=== PATIENT | female | born 1940 | race Caucasian/White ===

== ENCOUNTER 2019-12-29 12:56 | Inpatient (IN) | payer MEDICARE, OTHER ==
[~2019-12-29] VITALS: Ht 152.4 cm; Wt 59.0 kg
--- NOTE | 2019-12-29 16:21 | NUR ---
Pt arrived in unit to 327 on a gurney, transferred to bed, awake, AOx4. On RA with no SOB or distress noted at this time. Paperworks in chart. Complained of 5/10 pain on the lower back. Zamorano catheter in place draining well. Oriented to unit, call light and belongings within reach. Bed locked in lowest position with siderails 2x up
[2019-12-29 17:34] VITALS: BP 149/88
[2019-12-29] MEDS ORDERED: SENN-18 PO (18:37)
[2019-12-29] MEDS ORDERED: DIAZ5TAB PO (18:37)
[2019-12-29] MEDS ORDERED: MELA5TAB PO (18:37)
[2019-12-29] MEDS ORDERED: FLEC100T3 PO (18:37)
[2019-12-29] MEDS ORDERED: MAGN400O6 PO (18:37)
[2019-12-29] MEDS ORDERED: POLY17PO4 PO (18:37)
[2019-12-29] MEDS ORDERED: GABA600T PO (18:37)
[2019-12-29] MEDS ORDERED: ONDA4TAB5 PO (18:37)
[2019-12-29] MEDS ORDERED: METO-295 PO (18:37)
[2019-12-29] MEDS ORDERED: ACET-2154 PO (18:37)
[2019-12-29] MEDS ORDERED: TRAZ-182 PO (18:37)
[2019-12-29] MEDS ORDERED: DOCU-141 PO (18:37)
[2019-12-29] MEDS ORDERED: BISA10SU61 RC (18:37)
[2019-12-29] MEDS ORDERED: CALC300T4 PO (18:37)
[2019-12-29] MEDS ORDERED: TRAM50TA PO (18:37)
[2019-12-29] MEDS ORDERED: CALC-555 PO (18:37)
[2019-12-29] MEDS ORDERED: PANT40TA2 PO (18:37)
[2019-12-29] MEDS ORDERED: ESCI10TA PO (18:37)
[2019-12-29] MEDS ORDERED: MAG-55 PO (18:37)
[2019-12-29] MEDS ORDERED: BETH25TA10 PO (18:37)
[2019-12-29] MEDS ORDERED: VERA40TA5 PO (18:37)
[2019-12-29] MEDS ORDERED: CYCL7.5T17 PO (18:37)
[2019-12-29] MEDS ORDERED: OXYC5CAP18 PO (18:37)
[2019-12-29] MEDS ORDERED: ENOX40DI SQ (18:37)
[2019-12-29] MEDS ORDERED: Z GUARD REMEDY PASTE 57 GM TUBE TOP PRN (19:30)
[2019-12-29 19:55] VITALS: BP 131/75
[2019-12-29] MEDS ORDERED: DIAZEPAM 5 MG TABLET PO PRN (20:00)
[2019-12-29] MEDS ORDERED: BISACODYL 10 MG SUPP.RECT RC PRN (20:00)
[2019-12-29] MEDS ORDERED: ONDANSETRON HCL 4 MG TABLET PO PRN (20:00)
[2019-12-29] MEDS ORDERED: MAGNESIUM HYDROXIDE 30 ML LIQUID UDC PO PRN (20:00)
[2019-12-29] MEDS ORDERED: METOCLOPRAMIDE HCL 10 MG TABLET PO PRN (20:00)
[2019-12-29] MEDS ORDERED: TRAMADOL HCL 50 MG TABLET PO PRN (20:00)
[2019-12-29] MEDS ORDERED: CALCIUM CARBONATE 500 MG TAB.CHEW PO PRN (20:15)
[2019-12-29] MEDS ORDERED: MELATONIN 3 MG TABLET PO PRN (20:15)
[2019-12-29] MEDS ORDERED: MAG HYDROX/AL HYDROX/SIMETH 30 ML LIQUID UDC PO PRN (20:15)
[2019-12-29] MEDS: DOCUSATE SODIUM 100 MG CAPSULE PO SCH (20:51)
[2019-12-29] MEDS: SENNOSIDES 1 TABLET PO SCH (20:51)
[2019-12-29] MEDS: GABAPENTIN 300 MG CAPSULE PO SCH (20:51)
[2019-12-29] MEDS: TRAZODONE 50 MG TABLET PO SCH (20:52)
[2019-12-29] MEDS: VERAPAMIL 40 MG TABLET PO SCH (20:54)
[2019-12-29] MEDS: FLECAINIDE ACETATE 100 MG TABLET PO SCH (20:54)
--- NOTE | 2019-12-30 03:50 | NUR ---
AAOx4 In stable condition. Admitted for rehab. S/P L4-L5 decompression and fusion with decompression on 12/24/19 in [facility].VSS. Lowerback incision CARYN with dermabund. No drainage noted. All due meds given. Tolerated well. No ill effects noted. Denies any pain nor any discomfort. Zamorano catheter intact draining yellow urine. Patient has hx of urinary retention. Hx also of Afib,HTN, Hyperlipidemia, and spinal stenosis. No acute distress noted. Will monitor patient. Needs attended. Fall precautions maintained. Siderails up for safety.
[2019-12-30 04:44] VITALS: BP 124/73
--- NOTE | 2019-12-30 06:34 | NUR ---
End of shift notes: Slept well all night. Repositioned. Denies any pain nor any discomfort. VSS. All needs attended and met. Zamorano draining a moderate amount of yellow urine. VSS.
[2019-12-30] MEDS: ESCITALOPRAM OXALATE 10 MG TABLET PO SCH (08:39)
[2019-12-30] MEDS: PANTOPRAZOLE SODIUM 40 MG TABLET.DR PO SCH (08:39)
[2019-12-30] MEDS: DOCUSATE SODIUM 100 MG CAPSULE PO SCH ×2 (08:39→21:04)
[2019-12-30] MEDS: CALCIUM CARB/VITAMIN D 500MG-200UNITS TABLET PO SCH (08:39)
[2019-12-30] MEDS: FLECAINIDE ACETATE 100 MG TABLET PO SCH ×2 (08:40→21:01)
[2019-12-30] MEDS: SENNOSIDES 1 TABLET PO SCH ×2 (08:40→21:00)
[2019-12-30] MEDS: VERAPAMIL 40 MG TABLET PO SCH ×3 (08:41→21:02)
[2019-12-30] MEDS: BETHANECHOL CHLORIDE 25 MG TABLET PO SCH ×3 (08:42→17:26)
[2019-12-30] MEDS: ENOXAPARIN SODIUM 40 MG/0.4 ML DISP.SYRIN SQ SCH (08:53)
[2019-12-30] MEDS: MIRALAX 17 GM POWD.PACK PO SCH (09:37)
--- NOTE | 2019-12-30 14:29 | NUR ---
Received patient awake in bed in stable condition. Patient participates well in therapy. no complaint of pain/discomfort noted. Patient seen and examined by MD Leija. Patient BP went low during prior to therapy. MD Jenkins aware. Patient no complaint of dizziness. Encourage increase fluid intake. Patient therapy done at bedside. will continue monitor
[2019-12-30 14:32] VITALS: BP_SYST 101; BP_SYST 80; BP_SYST 92; BP_DIAS 47; BP_DIAS 52; BP_DIAS 60
[2019-12-30 16:26] VITALS: BP 125/80
[2019-12-30 20:00] VITALS: BP 126/63
[2019-12-30] MEDS: GABAPENTIN 300 MG CAPSULE PO SCH (21:03)
[2019-12-30] MEDS: TRAZODONE 50 MG TABLET PO SCH (21:03)
--- NOTE | 2019-12-30 21:13 | NUR ---
Received pt resting in bed. AAO x4. No acute distress noted. Denies pain/ discomfort. Due meds given as ordered. Pt refused senokot as she already had 2x BM today, but ok to take colace. Safety measures maintained. Bed alarm on. Call light and personal items within reach. Will continue to monitor.
--- NOTE | 2019-12-30 21:26 | NUR ---
Pt's garcia catheter patent and intact, draining well with clear yellow colored urine.
[2019-12-30] MEDS: OXYCODONE HCL 5 MG TABLET PO PRN (22:18)
[2019-12-31 04:00] VITALS: BP 130/60
[2019-12-31 07:14] LABS: BASOPHILS % (AUTO) 0.3 % (0.0-2.0); EOSINOPHILS # (AUTO) 0.2 K/uL (0.0-0.7); EOSINOPHILS % (AUTO) 2.5 % (0.0-7.0); HEMATOCRIT 25.1 % (31.2-41.9); HEMOGLOBIN 8.6 g/dL (10.9-14.3); LYMPHOCYTES # (AUTO) 2.1 K/uL (20.0-40.0); LYMPHOCYTES % (AUTO) 26.8 % (20.5-51.5); MEAN CORPUSCULAR HEMOGLOBIN 29.1 uug (24.7-32.8); MEAN CORPUSCULAR HGB CONC 34 g/dL (32.3-35.6); MEAN CORPUSCULAR VOLUME 85.2 fL (75.5-95.3); MONOCYTES # (AUTO) 0.7 K/uL (2.0-10.0); MONOCYTES % (AUTO) 8.9 % (0.0-11.0); NEUTROPHILS # (AUTO) 4.7 K/uL (1.8-8.9); NEUTROPHILS % (AUTO) 61.5 % (38.5-71.5); PLATELET COUNT (AUTO) 182 K/uL (179-408); RED BLOOD CELL COUNT(AUTO) 2.94 MIL/uL (3.63-4.92); WHITE BLOOD COUNT (AUTO) 7.7 K/uL (3.8-11.8)
[2019-12-31 07:29] LABS: CREATININE 1.1 mg/dL (0.6-1.3); MAGNESIUM 1.8 mg/dL (1.8-2.4); PHOSPHOROUS 3.6 mg/dL (2.5-4.9); POTASSIUM 4.5 mmol/L (3.5-5.1)
[2019-12-31 07:30] VITALS: BP 121/71
[2019-12-31] MEDS: SENNOSIDES 1 TABLET PO SCH ×2 (08:21→21:09)
[2019-12-31] MEDS: BETHANECHOL CHLORIDE 25 MG TABLET PO SCH ×3 (08:25→16:29)
[2019-12-31] MEDS: CALCIUM CARB/VITAMIN D 500MG-200UNITS TABLET PO SCH (08:25)
[2019-12-31] MEDS: ESCITALOPRAM OXALATE 10 MG TABLET PO SCH (08:25)
[2019-12-31] MEDS: DOCUSATE SODIUM 100 MG CAPSULE PO SCH ×2 (08:25→21:08)
[2019-12-31] MEDS: VERAPAMIL 40 MG TABLET PO SCH ×3 (08:27→21:11)
[2019-12-31] MEDS: MIRALAX 17 GM POWD.PACK PO SCH (08:27)
[2019-12-31] MEDS: FLECAINIDE ACETATE 100 MG TABLET PO SCH ×2 (08:28→21:08)
[2019-12-31] MEDS: PANTOPRAZOLE SODIUM 40 MG TABLET.DR PO SCH (08:28)
[2019-12-31] MEDS: ENOXAPARIN SODIUM 40 MG/0.4 ML DISP.SYRIN SQ SCH (08:29)
[2019-12-31] MEDS: ACETAMINOPHEN 325 MG TABLET PO PRN ×2 (10:30→16:29)
[2019-12-31 15:06] VITALS: BP 140/76
[2019-12-31 20:00] VITALS: BP 141/72
[2019-12-31] MEDS: GABAPENTIN 300 MG CAPSULE PO SCH (21:10)
[2019-12-31] MEDS: TRAZODONE 50 MG TABLET PO SCH (21:10)
--- NOTE | 2019-12-31 21:15 | NUR ---
Received patient in bed, AAO x4. No acute distress or SOB was noted. On room air. Able to make needs known. Complained of tolerated pain on her back. All due medications administered and well tolerated. Safety measures maintained. Fall prevention maintained. All needs attended promptly. Bed in locked and low position, Side rails up x2 for safety. Call light and frequently using items within reach. Continue to monitor and will endorse to the oncoming nurse.
--- NOTE | 2019-12-31 22:02 | NUR ---
Upon skin assessment, an area of skin abrasion between buttocks was noted. Picture taken and put in the chart. Wound care consult requested. Applied Zguard and Mepilex on the affected area. Continue to monitor.
[2020-01-01] MEDS: OXYCODONE HCL 5 MG TABLET PO PRN ×2 (02:17→22:23)
[2020-01-01 04:00] VITALS: BP 100/54
[2020-01-01] MEDS: PANTOPRAZOLE SODIUM 40 MG TABLET.DR PO SCH (06:18)
[2020-01-01 07:11] LABS: BASOPHILS % (AUTO) 0.3 % (0.0-2.0); EOSINOPHILS # (AUTO) 0.2 K/uL (0.0-0.7); EOSINOPHILS % (AUTO) 2.3 % (0.0-7.0); HEMATOCRIT 26.3 % (31.2-41.9); HEMOGLOBIN 8.9 g/dL (10.9-14.3); LYMPHOCYTES # (AUTO) 1.7 K/uL (20.0-40.0); LYMPHOCYTES % (AUTO) 20.4 % (20.5-51.5); MEAN CORPUSCULAR HEMOGLOBIN 29.1 uug (24.7-32.8); MEAN CORPUSCULAR HGB CONC 34 g/dL (32.3-35.6); MEAN CORPUSCULAR VOLUME 86.1 fL (75.5-95.3); MONOCYTES # (AUTO) 0.7 K/uL (2.0-10.0); NEUTROPHILS # (AUTO) 5.7 K/uL (1.8-8.9); PLATELET COUNT (AUTO) 195 K/uL (179-408); RED BLOOD CELL COUNT(AUTO) 3.05 MIL/uL (3.63-4.92); WHITE BLOOD COUNT (AUTO) 8.3 K/uL (3.8-11.8)
[2020-01-01 07:30] VITALS: BP 114/60
[2020-01-01 07:32] LABS: IRON, SERUM 34 ug/dL (50-175)
[2020-01-01 07:55] LABS: FERRITIN 34 ng/mL (8-252)
[2020-01-01] MEDS: SENNOSIDES 1 TABLET PO SCH ×2 (08:42→20:57)
[2020-01-01] MEDS: MIRALAX 17 GM POWD.PACK PO SCH ×2 (08:42→14:43)
[2020-01-01] MEDS: CALCIUM CARB/VITAMIN D 500MG-200UNITS TABLET PO SCH (08:43)
[2020-01-01] MEDS: BETHANECHOL CHLORIDE 25 MG TABLET PO SCH ×3 (08:43→17:30)
[2020-01-01] MEDS: FLECAINIDE ACETATE 100 MG TABLET PO SCH ×2 (08:43→20:57)
[2020-01-01] MEDS: ESCITALOPRAM OXALATE 10 MG TABLET PO SCH (08:45)
[2020-01-01] MEDS: DOCUSATE SODIUM 100 MG CAPSULE PO SCH ×3 (08:47→20:56)
[2020-01-01] MEDS: ENOXAPARIN SODIUM 40 MG/0.4 ML DISP.SYRIN SQ SCH (08:49)
[2020-01-01] MEDS: ACETAMINOPHEN 325 MG TABLET PO PRN ×2 (08:52→16:14)
--- NOTE | 2020-01-01 11:36 | NUR ---
WOUND CARE CONSULT: PT IS OFF UNIT AT THIS TIME. REVIEWED CHART, NURSING DOCUMENTATION AND SPOKE WITH NURSING STAFF. PHOTO INDICATES REDNESS, RASH WITH SOME IRREGULAR SKIN TO PERIANAL AND GLUTEAL CREASE AREA. RECOMMENDATIONS MADE FOR SKIN CARE AND PROTECTION. DISCUSSED WITH NURSING STAFF. WILL SEE PRN. ROSALES IN AGREEMENT WITH PLAN OF CARE.
[2020-01-01 15:51] VITALS: BP 148/70
--- NOTE | 2020-01-01 16:11 | NUR ---
INDIVIDUALIZED PLAN OF CARE
--- NOTE | 2020-01-01 16:12 | NUR ---
INTERDISCIPLINARY TEAM CONFERENCE
[2020-01-01] MEDS: SOD FERRIC GLUC COMPLX/SUCROSE 125 MG in IV NORMAL SALINE 100 ML IV SCH (16:13)
[2020-01-01] MEDS: VERAPAMIL 40 MG TABLET PO SCH ×3 (16:14→20:56)
[2020-01-01] MEDS: CLOTRIMAZOLE 1% CREAM 30 GM TUBE TOP SCH (17:30)
[2020-01-01 18:30] LABS: *BILIRUBIN,URIN NEGATIVE (NEGATIVE); *BLOOD, URINE NEGATIVE (NEGATIVE); *CLARITY,URINE CLEAR (CLEAR); *COLOR,URINE YELLOW (YELLOW); *KETONES,URINE NEGATIVE (NEGATIVE); *UROBILINOGEN,URINE 0.2 E.U./dl (NORMAL); LEUKOCYTE ESTERASE ,URINE NEGATIVE (NEGATIVE); NITRITE, URINE NEGATIVE (NEGATIVE); UGLUCOSE NEGATIVE (NEGATIVE)
[2020-01-01] MEDS: GABAPENTIN 300 MG CAPSULE PO SCH (20:57)
[2020-01-01] MEDS: TRAZODONE 50 MG TABLET PO SCH (20:57)
[2020-01-01 21:14] VITALS: BP 129/78
--- NOTE | 2020-01-02 02:25 | NUR ---
awake and alert and oriented x4 VSS no acute distress noted. OOB to bedside commode. BM noted this shift. Stool for occult blood sent. Garcia d/tao @ 1800 (12/31). Will monitor for voiding. Patient hasn't \voided yet, pass 8 hrs already. Bladder scan @ 0200, noted 625 cc noted in the bladder. CALL CENTER TRAINER Landis aware of patient's garcia catheter out, if no void in 8hrs insert garcia. #16FR garcia catheter inserted, obtained almost 700 ml out of yellow urine. Patient says felt much better. Needs attended.
[2020-01-02 05:30] VITALS: BP 106/51
[2020-01-02] MEDS: PANTOPRAZOLE SODIUM 40 MG TABLET.DR PO SCH (06:05)
--- NOTE | 2020-01-02 06:51 | NUR ---
End of shift notes: Slept well most shift. Zamorano catheter draining yellow urine. denies any pain nor any discomfort. VSS. Kept comfortable.
[2020-01-02 07:30] VITALS: BP 106/64
--- NOTE | 2020-01-02 07:30 | NUR ---
Received patient in bed alert with no respiratory distress noted. No sign of distress at this time.Head of the bed is elevated. Zamorano catheter fr 18. draining with clear yellow output. Left forearm 22 g patent and intact. . Changed and repositioned patient for comfort. Safety and measures provided. Will continue to monitor.
[2020-01-02] MEDS: DOCUSATE SODIUM 100 MG CAPSULE PO SCH ×3 (09:00→21:37)
[2020-01-02] MEDS: VERAPAMIL 40 MG TABLET PO SCH ×4 (09:00→21:40)
[2020-01-02] MEDS: ESCITALOPRAM OXALATE 10 MG TABLET PO SCH ×2 (09:00→10:28)
--- NOTE | 2020-01-02 09:30 | NUR ---
Patient is off the floor for physical therapy. Will give morning medications when back on the floor. Addendum: 01/02/20 at 1323 by FRANCO KILGORE RN Patient off the floor for occupational therapy
[2020-01-02] MEDS: MIRALAX 17 GM POWD.PACK PO SCH (10:26)
[2020-01-02] MEDS: ENOXAPARIN SODIUM 40 MG/0.4 ML DISP.SYRIN SQ SCH (10:26)
[2020-01-02] MEDS: FLECAINIDE ACETATE 100 MG TABLET PO SCH ×2 (10:27→21:37)
[2020-01-02] MEDS: CALCIUM CARB/VITAMIN D 500MG-200UNITS TABLET PO SCH (10:28)
[2020-01-02] MEDS: ACETAMINOPHEN 325 MG TABLET PO PRN ×2 (10:28→17:21)
[2020-01-02] MEDS: SENNOSIDES 1 TABLET PO SCH ×2 (10:28→21:00)
[2020-01-02] MEDS: BETHANECHOL CHLORIDE 25 MG TABLET PO SCH ×3 (10:28→17:21)
[2020-01-02] MEDS: CLOTRIMAZOLE 1% CREAM 30 GM TUBE TOP SCH ×2 (10:29→17:25)
--- NOTE | 2020-01-02 13:00 | NUR ---
Patient is off the floor for physical therapy. Will give morning medications when back on the floor.
[2020-01-02 13:47] LABS: *OCCULT BLOOD STOOL NEGATIVE (NEGATIVE)
[2020-01-02] MEDS: SOD FERRIC GLUC COMPLX/SUCROSE 125 MG in IV NORMAL SALINE 100 ML IV SCH (13:56)
[2020-01-02] MEDS: HYDROCORTISONE 2.5 % RECTAL CREAM 28.35 GM TUBE RC PRN (13:57)
--- NOTE | 2020-01-02 14:15 | NUR ---
Patient refused blood pressure medication because she says her blood pressure is too low. She doesn't want it going any lower. Will continue to monitor
[2020-01-02 16:00] VITALS: BP 107/61
--- NOTE | 2020-01-02 18:45 | NUR ---
Patient has elevated blood pressure. Will give earlier blood pressure medication that was held due to low BP. BP is 162/86 with a heart rate of 71. Will continue to monitor
--- NOTE | 2020-01-02 19:10 | NUR ---
patient in bed alert with no respiratory distress noted. No sign of distress at this time.Head of the bed is elevated. Zamorano catheter fr 18. draining with clear yellow output. Left forearm 22 g patent and intact. All medications given as ordered. Changed and repositioned patient for comfort. Safety and measures provided. Will endorse to oncoming nurse.
[2020-01-02 20:32] VITALS: BP 138/69
[2020-01-02] MEDS: GABAPENTIN 300 MG CAPSULE PO SCH (21:38)
[2020-01-02] MEDS: TRAZODONE 50 MG TABLET PO SCH (21:39)
[2020-01-02] MEDS: OXYCODONE HCL 5 MG TABLET PO PRN (21:45)
--- NOTE | 2020-01-02 21:59 | NUR ---
Received pt resting in bed and watching tv. AAO x4. No acute distress noted. C/o /10 pain on the back, PRN pain med given. Other due meds given as ordered. Pt refused senokot. Risks and benefits explained, still refused. Zamorano catheter, draining well with clear yellow colored urine. Skin care rendered. Safety measures maintained. Call light and personal items within reach. Will continue to monitor.
[2020-01-03 04:46] VITALS: BP 107/62
[2020-01-03] MEDS: PANTOPRAZOLE SODIUM 40 MG TABLET.DR PO SCH (06:14)
--- NOTE | 2020-01-03 07:30 | NUR ---
Received patient in bed alert and oriented with with no respiratory distress noted. No sign of distress at this time. Head of the bed is elevated. Zamorano catheter fr 18. draining with clear yellow output. right wrist with 22 g patent and intact. Patient reports pain and is asking for pain management prior to rehab. Will administer medications as ordered. Changed and repositioned patient for comfort. Safety measures provided. Will continue to monitor.
[2020-01-03] MEDS: MIRALAX 17 GM POWD.PACK PO SCH (08:33)
[2020-01-03] MEDS: SENNOSIDES 1 TABLET PO SCH ×2 (08:33→21:00)
[2020-01-03] MEDS: ACETAMINOPHEN 325 MG TABLET PO PRN ×2 (08:36→14:27)
[2020-01-03] MEDS: CALCIUM CARB/VITAMIN D 500MG-200UNITS TABLET PO SCH (08:36)
[2020-01-03] MEDS: FLECAINIDE ACETATE 100 MG TABLET PO SCH ×2 (08:37→21:09)
[2020-01-03] MEDS: ENOXAPARIN SODIUM 40 MG/0.4 ML DISP.SYRIN SQ SCH (08:39)
[2020-01-03] MEDS: ESCITALOPRAM OXALATE 10 MG TABLET PO SCH (08:46)
[2020-01-03] MEDS: CLOTRIMAZOLE 1% CREAM 30 GM TUBE TOP SCH ×2 (08:46→17:33)
[2020-01-03] MEDS: DOCUSATE SODIUM 100 MG CAPSULE PO SCH ×2 (08:46→21:09)
[2020-01-03] MEDS: VERAPAMIL 40 MG TABLET PO SCH ×3 (09:00→21:08)
[2020-01-03] MEDS: BETHANECHOL CHLORIDE 25 MG TABLET PO SCH ×3 (09:04→17:32)
[2020-01-03 12:00] VITALS: BP 103/61
[2020-01-03] MEDS: SOD FERRIC GLUC COMPLX/SUCROSE 125 MG in IV NORMAL SALINE 100 ML IV SCH (13:56)
[2020-01-03 16:26] VITALS: BP 119/69
--- NOTE | 2020-01-03 20:00 | NUR ---
Received patient awake and alert. Patient shows no signs or symptoms of distress at this time. Vital signs stable. Complains of having lower back pain. PRN pain medication to given with 2100 meds as per patient request. Bed set to lowest position. Call light within reach. Side rails X2 are up. Will continue to monitor patient.
--- NOTE | 2020-01-03 20:03 | NUR ---
Patient in bed alert with no respiratory distress noted. No sign of distress at this time. Head of the bed is elevated. Zamorano catheter draining with clear yellow output. Left forearm 22 g patent and intact. All medications given as ordered. Changed and repositioned patient for comfort. Safety and measures provided. Will endorse to oncoming nurse.
[2020-01-03 20:32] VITALS: BP 136/75
[2020-01-03] MEDS: TRAZODONE 50 MG TABLET PO SCH (21:09)
[2020-01-03] MEDS: GABAPENTIN 300 MG CAPSULE PO SCH (21:09)
[2020-01-03] MEDS: OXYCODONE HCL 5 MG TABLET PO PRN (21:10)
[2020-01-04] MEDS: PANTOPRAZOLE SODIUM 40 MG TABLET.DR PO SCH (06:13)
--- NOTE | 2020-01-04 06:35 | NUR ---
Patient shows no signs or symptoms of distress at this time. Vital signs stable. Will endorse patient to day shift nurse in stable condition.
[2020-01-04 06:51] VITALS: BP 135/74
[2020-01-04 07:30] VITALS: BP 118/67
[2020-01-04] MEDS: VERAPAMIL 40 MG TABLET PO SCH ×3 (09:00→21:00)
[2020-01-04] MEDS: ESCITALOPRAM OXALATE 10 MG TABLET PO SCH (09:00)
[2020-01-04] MEDS: SENNOSIDES 1 TABLET PO SCH ×2 (09:10→21:00)
[2020-01-04] MEDS: DOCUSATE SODIUM 100 MG CAPSULE PO SCH ×2 (09:10→21:00)
[2020-01-04] MEDS: FLECAINIDE ACETATE 100 MG TABLET PO SCH ×2 (09:11→21:01)
[2020-01-04] MEDS: BETHANECHOL CHLORIDE 25 MG TABLET PO SCH ×3 (09:11→17:19)
[2020-01-04] MEDS: MIRALAX 17 GM POWD.PACK PO SCH (09:11)
[2020-01-04] MEDS: CALCIUM CARB/VITAMIN D 500MG-200UNITS TABLET PO SCH (09:11)
[2020-01-04] MEDS: ACETAMINOPHEN 325 MG TABLET PO PRN (09:18)
[2020-01-04] MEDS: ENOXAPARIN SODIUM 40 MG/0.4 ML DISP.SYRIN SQ SCH (09:25)
[2020-01-04] MEDS: CLOTRIMAZOLE 1% CREAM 30 GM TUBE TOP SCH ×2 (09:31→17:20)
[2020-01-04 13:07] LABS: CALCITRIOL VIT D,1,25 DIHYDROX 27.8 pg/mL (19.9-79.3)
[2020-01-04] MEDS: SOD FERRIC GLUC COMPLX/SUCROSE 125 MG in IV NORMAL SALINE 100 ML IV SCH (13:32)
[2020-01-04] MEDS ORDERED: IBUPROFEN 600 MG TABLET PO PRN (15:00)
[2020-01-04 16:00] VITALS: BP 117/73
[2020-01-04] MEDS ORDERED: METHOCARBAMOL 500 MG TABLET PO PRN (17:15)
--- NOTE | 2020-01-04 17:20 | NUR ---
Patient seen and examined by Dr. Willem MD ordered for Robaxin 500mg PO BID PRN.
--- NOTE | 2020-01-04 19:45 | NUR ---
Received patient awake and alert. Patient shows no signs or symptoms of distress at this time. Vital signs stable. Zamorano patent and draining to gravity. Bed set to lowest position. Call light within reach. Side rails X2 are up. Will continue to monitor patient.
[2020-01-04 20:25] VITALS: BP 121/71
[2020-01-04] MEDS: TRAZODONE 50 MG TABLET PO SCH (21:00)
[2020-01-04] MEDS: GABAPENTIN 300 MG CAPSULE PO SCH (21:00)
[2020-01-04] MEDS: OXYCODONE HCL 5 MG TABLET PO PRN (21:01)
--- NOTE | 2020-01-05 03:07 | NUR ---
Endorsed patient to MAGED Lenz, for continuation of care.
--- NOTE | 2020-01-05 04:00 | NUR ---
Received Report from Gideon. patient asleep, no signs or symptoms of distress at this time. Safety measure maintained Bed set to lowest position, locked, x2 rails. Call light within reach. Will continue to monitor patient.
[2020-01-05] MEDS: PANTOPRAZOLE SODIUM 40 MG TABLET.DR PO SCH (06:21)
[2020-01-05 06:51] VITALS: BP 147/66
[2020-01-05 07:30] VITALS: BP 118/65
[2020-01-05] MEDS: ACETAMINOPHEN 325 MG TABLET PO PRN ×2 (08:41→14:06)
[2020-01-05] MEDS: MIRALAX 17 GM POWD.PACK PO SCH (08:42)
[2020-01-05] MEDS: BETHANECHOL CHLORIDE 25 MG TABLET PO SCH ×3 (08:42→18:06)
[2020-01-05] MEDS: SENNOSIDES 1 TABLET PO SCH ×2 (08:42→20:54)
[2020-01-05] MEDS: FLECAINIDE ACETATE 100 MG TABLET PO SCH ×2 (08:42→20:38)
[2020-01-05] MEDS: CALCIUM CARB/VITAMIN D 500MG-200UNITS TABLET PO SCH (08:42)
[2020-01-05] MEDS: ENOXAPARIN SODIUM 40 MG/0.4 ML DISP.SYRIN SQ SCH (08:47)
[2020-01-05] MEDS: DOCUSATE SODIUM 100 MG CAPSULE PO SCH ×2 (08:49→20:38)
[2020-01-05] MEDS: ESCITALOPRAM OXALATE 10 MG TABLET PO SCH (08:49)
[2020-01-05] MEDS: CLOTRIMAZOLE 1% CREAM 30 GM TUBE TOP SCH ×2 (08:49→18:06)
[2020-01-05] MEDS: VERAPAMIL 40 MG TABLET PO SCH ×3 (09:00→20:50)
--- NOTE | 2020-01-05 10:10 | NUR ---
Patient is AAO x 4, No acute respiratory distress noted; verbally able to express needs. Vital signs stable for patient. IV line on Left upper arm intact and patent. Due morning medication administered as ordered and tolerated well. Patient on PT/OT therapy as outlined. Patient is cooperative with care. Needs attended and met and will continue with care.
--- NOTE | 2020-01-05 10:15 | NUR ---
F/C intact and draining clear yellow urine. Will continue with care.
[2020-01-05] MEDS: SOD FERRIC GLUC COMPLX/SUCROSE 125 MG in IV NORMAL SALINE 100 ML IV SCH (13:20)
[2020-01-05 15:44] LABS: BASOPHILS # (AUTO) 0.1 K/uL (0.0-8.0); BASOPHILS % (AUTO) 0.8 % (0.0-2.0); EOSINOPHILS # (AUTO) 0.1 K/uL (0.0-0.7); EOSINOPHILS % (AUTO) 1.5 % (0.0-7.0); HEMATOCRIT 27.3 % (31.2-41.9); HEMOGLOBIN 9.1 g/dL (10.9-14.3); LYMPHOCYTES # (AUTO) 1.3 K/uL (20.0-40.0); LYMPHOCYTES % (AUTO) 14.8 % (20.5-51.5); MEAN CORPUSCULAR HEMOGLOBIN 29.2 uug (24.7-32.8); MEAN CORPUSCULAR HGB CONC 34 g/dL (32.3-35.6); MEAN CORPUSCULAR VOLUME 87.4 fL (75.5-95.3); MONOCYTES # (AUTO) 0.5 K/uL (2.0-10.0); NEUTROPHILS # (AUTO) 6.9 K/uL (1.8-8.9); NEUTROPHILS % (AUTO) 76.9 % (38.5-71.5); PLATELET COUNT (AUTO) 221 K/uL (179-408); RED BLOOD CELL COUNT(AUTO) 3.13 MIL/uL (3.63-4.92)
[2020-01-05 16:00] VITALS: BP 124/74
[2020-01-05 16:05] LABS: CREATININE 1.1 mg/dL (0.6-1.3); POTASSIUM 4.2 mmol/L (3.5-5.1)
--- NOTE | 2020-01-05 18:53 | NUR ---
All due evening meds administered as ordered and scheduled, Patient compliant with care. Surgical incision on mid lower back intact, dry and open to air. Patient is BRP with one person assist for care. All other needs attended, safety measures in place, needs attended and will continue with care.
[2020-01-05] MEDS: GABAPENTIN 300 MG CAPSULE PO SCH (20:35)
[2020-01-05] MEDS: TRAZODONE 50 MG TABLET PO SCH (20:36)
[2020-01-05 20:55] VITALS: BP 130/75
[2020-01-05] MEDS: OXYCODONE HCL 5 MG TABLET PO PRN (21:50)
[2020-01-05] MEDS: CYCLOBENZAPRINE HCL 10 MG TABLET PO PRN (21:50)
--- NOTE | 2020-01-06 04:12 | NUR ---
Resting in bed upon initial rounds. AAOx4 No acute distress noted. Will monitor patient. All due meds given as ordered. Repositioned for comfort. Turned q 2hr. Medicated for pain as needed. Mid-back incision healing, open to air. Zamorano catheter draining yellow urine. I & O monitor. Fall precautions maintained. Siderails up for safety. Kept comfortable. VSS.
[2020-01-06] MEDS: PANTOPRAZOLE SODIUM 40 MG TABLET.DR PO SCH (06:12)
[2020-01-06 06:40] VITALS: BP 117/57
--- NOTE | 2020-01-06 06:52 | NUR ---
End of shift notes: aaox4. Quiet night. No distress noted. VSS. Compliant with care and meds. No complaints presented during shift. Will monitor patient.Zamorano catheter intact draining yellow urine. All needs attended and met.
[2020-01-06 06:54] LABS: BASOPHILS # (AUTO) 0.1 K/uL (0.0-8.0); EOSINOPHILS # (AUTO) 0.2 K/uL (0.0-0.7); EOSINOPHILS % (AUTO) 2.3 % (0.0-7.0); HEMATOCRIT 25.8 % (31.2-41.9); HEMOGLOBIN 8.8 g/dL (10.9-14.3); LYMPHOCYTES # (AUTO) 1.5 K/uL (20.0-40.0); MEAN CORPUSCULAR HEMOGLOBIN 29.7 uug (24.7-32.8); MEAN CORPUSCULAR HGB CONC 34 g/dL (32.3-35.6); MONOCYTES # (AUTO) 0.6 K/uL (2.0-10.0); MONOCYTES % (AUTO) 7.4 % (0.0-11.0); NEUTROPHILS # (AUTO) 5.2 K/uL (1.8-8.9); NEUTROPHILS % (AUTO) 69.3 % (38.5-71.5); PLATELET COUNT (AUTO) 198 K/uL (179-408); RED BLOOD CELL COUNT(AUTO) 2.97 MIL/uL (3.63-4.92); WHITE BLOOD COUNT (AUTO) 7.5 K/uL (3.8-11.8)
[2020-01-06 07:11] LABS: CREATININE 0.9 mg/dL (0.6-1.3); MAGNESIUM 1.7 mg/dL (1.8-2.4); PHOSPHOROUS 3.9 mg/dL (2.5-4.9); POTASSIUM 4.1 mmol/L (3.5-5.1)
[2020-01-06 07:46] VITALS: BP 111/56
[2020-01-06] MEDS: VERAPAMIL 40 MG TABLET PO SCH ×3 (08:57→21:07)
[2020-01-06] MEDS: ACETAMINOPHEN 325 MG TABLET PO PRN ×2 (08:59→13:48)
[2020-01-06] MEDS: MIRALAX 17 GM POWD.PACK PO SCH (08:59)
[2020-01-06] MEDS: DOCUSATE SODIUM 100 MG CAPSULE PO SCH ×2 (08:59→21:07)
[2020-01-06] MEDS: CALCIUM CARB/VITAMIN D 500MG-200UNITS TABLET PO SCH (08:59)
[2020-01-06] MEDS: SENNOSIDES 1 TABLET PO SCH ×2 (08:59→21:00)
[2020-01-06] MEDS: ESCITALOPRAM OXALATE 10 MG TABLET PO SCH (08:59)
[2020-01-06] MEDS: BETHANECHOL CHLORIDE 25 MG TABLET PO SCH ×3 (08:59→17:16)
[2020-01-06] MEDS: FLECAINIDE ACETATE 100 MG TABLET PO SCH ×2 (09:01→21:08)
[2020-01-06] MEDS: ENOXAPARIN SODIUM 40 MG/0.4 ML DISP.SYRIN SQ SCH (09:01)
[2020-01-06] MEDS: CLOTRIMAZOLE 1% CREAM 30 GM TUBE TOP SCH ×2 (09:11→17:16)
--- NOTE | 2020-01-06 09:55 | NUR ---
Patient is AAO x 4, No acute distress noted; verbally able to express needs. Vital signs stable for patient. Morning due medications administered as ordered and scheduled tolerated well. Patient on continuos PT/OT therapy. Pt. is BRP with a walker and 1 person assist. Safety measures in place, needs attended and will continue with care.
--- NOTE | 2020-01-06 10:25 | NUR ---
Patient refused Lexapro 10mg PO daily stating "I don't need it".
[2020-01-06] MEDS ORDERED: MAGNESIUM OXIDE 400 MG TABLET PO ONE (11:30)
[2020-01-06] MEDS: MAGNESIUM CHLORIDE 64 MG TABLET.SA PO SCH (13:42)
[2020-01-06] MEDS ORDERED: ERGOCALCIFEROL 50,000 UNIT CAPSULE PO SCH (14:00)
[2020-01-06 16:11] VITALS: BP 99/53
--- NOTE | 2020-01-06 19:29 | NUR ---
Patient in bed and resting comfortably; all due evening meds administered as ordered and scheduled. Vital signs stable. Surgical incision site on mid lower back intact and dry. Skin kept clean and dry, needs attended, safety measures in place and will continue with care.
[2020-01-06 20:18] VITALS: BP 117/72
[2020-01-06] MEDS: TRAZODONE 50 MG TABLET PO SCH (21:07)
[2020-01-06] MEDS: GABAPENTIN 300 MG CAPSULE PO SCH (21:07)
[2020-01-06] MEDS: CYCLOBENZAPRINE HCL 10 MG TABLET PO PRN (21:55)
[2020-01-06] MEDS: OXYCODONE HCL 5 MG TABLET PO PRN (21:55)
--- NOTE | 2020-01-06 23:08 | NUR ---
AAOx4 Resting comfortably upon rounds. Needs attended. All due meds given. Medicated for pain as needed. No acute distress noted. Zamorano catheter draining yellow urine. Repositioned for comfort. Turned to sides. Fall precautions maintained. Siderails up for safety.
[2020-01-07 02:21] VITALS: BP 117/72
[2020-01-07 04:18] VITALS: BP 100/44
[2020-01-07] MEDS: PANTOPRAZOLE SODIUM 40 MG TABLET.DR PO SCH (06:15)
--- NOTE | 2020-01-07 06:55 | NUR ---
End of shift notes: Slept well most of the shift. Will monitor patient. Needs attended. VSS. Zamorano catheter intact draining yellow urine. All due meds given.
[2020-01-07 08:00] VITALS: BP 110/67
[2020-01-07] MEDS: SENNOSIDES 1 TABLET PO SCH ×2 (08:54→21:00)
[2020-01-07] MEDS: BETHANECHOL CHLORIDE 25 MG TABLET PO SCH ×3 (08:54→16:11)
[2020-01-07] MEDS: CALCIUM CARB/VITAMIN D 500MG-200UNITS TABLET PO SCH (08:54)
[2020-01-07] MEDS: FLECAINIDE ACETATE 100 MG TABLET PO SCH ×2 (08:55→21:23)
[2020-01-07] MEDS: ACETAMINOPHEN 325 MG TABLET PO PRN ×2 (08:55→14:51)
[2020-01-07] MEDS: MAGNESIUM CHLORIDE 64 MG TABLET.SA PO SCH (08:55)
[2020-01-07] MEDS: MIRALAX 17 GM POWD.PACK PO SCH (08:59)
[2020-01-07] MEDS: DOCUSATE SODIUM 100 MG CAPSULE PO SCH ×2 (09:00→21:23)
[2020-01-07] MEDS: VERAPAMIL 40 MG TABLET PO SCH ×3 (09:00→21:00)
[2020-01-07] MEDS: ESCITALOPRAM OXALATE 10 MG TABLET PO SCH (09:00)
[2020-01-07] MEDS: CLOTRIMAZOLE 1% CREAM 30 GM TUBE TOP SCH ×2 (09:05→16:10)
[2020-01-07 11:59] VITALS: BP 99/55
--- NOTE | 2020-01-07 15:40 | NUR ---
patient is alert, oriented x4, no sob, resp even nonlabored, no distress noted, continue with PT,OT services, tolerated well, orthopedic apt tomorrow, patient is very demanding, appropriate needs met timely.
--- NOTE | 2020-01-07 15:42 | NUR ---
telephone order received from dr hernandez to change the order for urocholine to 50mg twice a day. Addendum: 01/07/20 at 1543 by ANTONIO HOPPER RN, RN golden noted
[2020-01-07 16:00] VITALS: BP 108/55
[2020-01-07] MEDS: HYDROCORTISONE 2.5 % RECTAL CREAM 28.35 GM TUBE RC PRN (16:11)
--- NOTE | 2020-01-07 17:07 | NUR ---
patient is very demanding, and bossy, patient calls to the nursing station multiple times for same request and demands to be present to her right away, instantly, makes frequent demands from staff to call doctors, send messages to the doctors for nonurgent matters, despite explaining by nurses. patient demanded to be ambulated multiple times on the unit by nurses during lunch time, dinner time and after dinner time as well. per PT patient ambulated with physical therapy 200feet.
[2020-01-07 20:15] VITALS: BP 112/58
[2020-01-07] MEDS: GABAPENTIN 300 MG CAPSULE PO SCH (21:22)
[2020-01-07] MEDS: TRAZODONE 50 MG TABLET PO SCH (21:24)
[2020-01-07] MEDS: OXYCODONE HCL 5 MG TABLET PO PRN (21:24)
--- NOTE | 2020-01-07 22:54 | NUR ---
resting in bed upon initial rounds. AAOx 4 needs attended. All due meds given as needed.Medicated for pain as needed. Will monitor patient. Zamorano catheter draining yellow urine. I & O monitor. Patient repositioned for comfort. Siderails up for safety. VSS.
[2020-01-08 04:18] VITALS: BP 105/60
[2020-01-08] MEDS: PANTOPRAZOLE SODIUM 40 MG TABLET.DR PO SCH (06:09)
--- NOTE | 2020-01-08 06:53 | NUR ---
End of shift notes: Slept well most shift. no acute distress noted. kept comfortable. Zamorano catheter intact draining yellow urine. I & O monitor. Siderails up. No complaints presented during shift.
[2020-01-08 07:50] VITALS: BP 103/62
[2020-01-08] MEDS: CALCIUM CARB/VITAMIN D 500MG-200UNITS TABLET PO SCH (08:24)
[2020-01-08] MEDS: SENNOSIDES 1 TABLET PO SCH ×3 (08:25→21:22)
[2020-01-08] MEDS: FLECAINIDE ACETATE 100 MG TABLET PO SCH ×2 (08:26→21:05)
[2020-01-08] MEDS: MAGNESIUM CHLORIDE 64 MG TABLET.SA PO SCH (08:27)
[2020-01-08] MEDS: ESCITALOPRAM OXALATE 10 MG TABLET PO SCH (08:27)
[2020-01-08] MEDS: VERAPAMIL 40 MG TABLET PO SCH ×3 (08:27→21:06)
[2020-01-08] MEDS: BETHANECHOL CHLORIDE 25 MG TABLET PO SCH ×2 (08:28→16:14)
[2020-01-08] MEDS: ACETAMINOPHEN 325 MG TABLET PO PRN (08:32)
[2020-01-08] MEDS: DOCUSATE SODIUM 100 MG CAPSULE PO SCH ×3 (08:33→21:04)
[2020-01-08] MEDS: CLOTRIMAZOLE 1% CREAM 30 GM TUBE TOP SCH ×2 (08:33→16:14)
[2020-01-08] MEDS: MIRALAX 17 GM POWD.PACK PO SCH ×2 (08:33→16:15)
--- NOTE | 2020-01-08 13:53 | NUR ---
pt left the facility via ambulances to her doc appointment in stable condition
--- NOTE | 2020-01-08 14:22 | NUR ---
INTERDISCIPLINARY TEAM CONFERENCE
--- NOTE | 2020-01-08 16:00 | NUR ---
pt came back from appointment in stable condition
[2020-01-08 16:11] VITALS: BP 139/77
[2020-01-08 20:08] VITALS: BP 117/65
--- NOTE | 2020-01-08 20:20 | NUR ---
Patient in bed ,awake AOx4 .On room air .No s/s of distress noted.Zamorano catheter draining well with clear yellow urine output.Due meds given.Call light with in reach.Safety measures in place.
[2020-01-08] MEDS: GABAPENTIN 300 MG CAPSULE PO SCH (21:04)
[2020-01-08] MEDS: TRAZODONE 50 MG TABLET PO SCH (21:05)
[2020-01-08] MEDS: OXYCODONE HCL 5 MG TABLET PO PRN (22:33)
[2020-01-09 05:04] VITALS: BP 106/55
[2020-01-09] MEDS: PANTOPRAZOLE SODIUM 40 MG TABLET.DR PO SCH (06:21)
[2020-01-09] MEDS: ESCITALOPRAM OXALATE 10 MG TABLET PO SCH (09:00)
[2020-01-09] MEDS: VERAPAMIL 40 MG TABLET PO SCH ×3 (09:00→21:00)
[2020-01-09] MEDS: BETHANECHOL CHLORIDE 25 MG TABLET PO SCH ×2 (09:01→18:05)
[2020-01-09] MEDS: MIRALAX 17 GM POWD.PACK PO SCH (09:02)
[2020-01-09] MEDS: CALCIUM CARB/VITAMIN D 500MG-200UNITS TABLET PO SCH (09:02)
[2020-01-09] MEDS: DOCUSATE SODIUM 100 MG CAPSULE PO SCH ×2 (09:02→21:00)
[2020-01-09] MEDS: FLECAINIDE ACETATE 100 MG TABLET PO SCH ×2 (09:04→21:16)
[2020-01-09] MEDS: MAGNESIUM CHLORIDE 64 MG TABLET.SA PO SCH (09:04)
[2020-01-09] MEDS: SENNOSIDES 1 TABLET PO SCH ×2 (09:04→21:00)
[2020-01-09] MEDS: CLOTRIMAZOLE 1% CREAM 30 GM TUBE TOP SCH ×2 (09:05→18:03)
[2020-01-09] MEDS: ACETAMINOPHEN 325 MG TABLET PO PRN (09:13)
[2020-01-09 09:53] VITALS: BP 113/71
--- NOTE | 2020-01-09 11:00 | NUR ---
F/C REMOVED INTACT ORDERED WITH NO DIFFICULTY, TAE WELL. 1200ML CLEAR YELLOW URINE REMOVED. MD WANTS BLADDER SCAN AFTER EACH URINATION. AND ST CATH RESIDUAL IF NECESSARY Q6H. DON NOT REINSERT F/C TODAY HE STATED
[2020-01-09 16:21] VITALS: BP 144/79
--- NOTE | 2020-01-09 17:29 | NUR ---
UP TO COMMODE FOR VOIDING. BLADDER SCAN DONE 341ML NOTED RESIDUAL
--- NOTE | 2020-01-09 18:20 | NUR ---
STRAIGHT CATH DONE 675ML CLEAR YELLOW URINE DRAINED. NO FOUL ODOR NOTED. TAE WELL
--- NOTE | 2020-01-09 18:30 | NUR ---
STRAIGHT CATH DONE 675ML OUT CLEAR YELLOW NO FOUL ORDER
--- NOTE | 2020-01-09 20:00 | NUR ---
Received patient in bed resting comfortably.A/O x 4.HOB elevated .On room air.No s/s of distress.Due meds given.Call light with in reach.
[2020-01-09 20:19] VITALS: BP 131/74
[2020-01-09] MEDS: GABAPENTIN 300 MG CAPSULE PO SCH (21:14)
[2020-01-09] MEDS: TRAZODONE 50 MG TABLET PO SCH (21:15)
[2020-01-09] MEDS: OXYCODONE HCL 5 MG TABLET PO PRN (23:44)
--- NOTE | 2020-01-09 23:54 | NUR ---
Patient was assisted to the bathroom by CLIENT TECHNICAL SUPPORT ASSOCIATE .Voided x2.Noted with 250 ml of urine output on the second void.Bladder scan done noted with 400 residual.Refused straight cath at this time.Explained risk and benefit x3 .Still refused.Per Patient to wait few more hours or later.Abdomen non distended,non tender .Denies pain upon palpitation.Will continue to monitor.Call light with in reach.
[2020-01-10] MEDS: OXYCODONE HCL 5 MG TABLET PO PRN ×2 (00:47→21:18)
--- NOTE | 2020-01-10 02:00 | NUR ---
Patient awake.Assisted to the bathroom with the use of walker.Voided with 500 ml clear urine output .No sediments.Denies pain upon urination.
[2020-01-10 05:57] VITALS: BP 96/58
[2020-01-10 06:02] LABS: BASOPHILS # (AUTO) 0.1 K/uL (0.0-8.0); BASOPHILS % (AUTO) 1.1 % (0.0-2.0); EOSINOPHILS # (AUTO) 0.2 K/uL (0.0-0.7); HEMATOCRIT 27.8 % (31.2-41.9); HEMOGLOBIN 9.3 g/dL (10.9-14.3); LYMPHOCYTES # (AUTO) 1.5 K/uL (20.0-40.0); LYMPHOCYTES % (AUTO) 20.8 % (20.5-51.5); MEAN CORPUSCULAR HEMOGLOBIN 29.6 uug (24.7-32.8); MEAN CORPUSCULAR HGB CONC 34 g/dL (32.3-35.6); MEAN CORPUSCULAR VOLUME 88.2 fL (75.5-95.3); MONOCYTES # (AUTO) 0.5 K/uL (2.0-10.0); MONOCYTES % (AUTO) 6.7 % (0.0-11.0); NEUTROPHILS # (AUTO) 4.9 K/uL (1.8-8.9); NEUTROPHILS % (AUTO) 68.4 % (38.5-71.5); PLATELET COUNT (AUTO) 200 K/uL (179-408); RED BLOOD CELL COUNT(AUTO) 3.15 MIL/uL (3.63-4.92); WHITE BLOOD COUNT (AUTO) 7.1 K/uL (3.8-11.8)
[2020-01-10] MEDS: PANTOPRAZOLE SODIUM 40 MG TABLET.DR PO SCH (06:12)
[2020-01-10 06:25] LABS: MAGNESIUM 1.6 mg/dL (1.8-2.4); PHOSPHOROUS 3.7 mg/dL (2.5-4.9); POTASSIUM 4.4 mmol/L (3.5-5.1)
--- NOTE | 2020-01-10 06:58 | NUR ---
Patient awake.Bladder scan noted with 526 residual. Straight cath done with 500 cc clear urine output noted.Denies pain upon urination.Will endorse to oncoming shift.
[2020-01-10 08:42] VITALS: BP 156/63
[2020-01-10] MEDS: CALCIUM CARB/VITAMIN D 500MG-200UNITS TABLET PO SCH (08:45)
[2020-01-10] MEDS: DOCUSATE SODIUM 100 MG CAPSULE PO SCH ×2 (08:45→20:01)
[2020-01-10] MEDS: BETHANECHOL CHLORIDE 25 MG TABLET PO SCH ×2 (08:45→16:03)
[2020-01-10] MEDS: ESCITALOPRAM OXALATE 10 MG TABLET PO SCH (08:46)
[2020-01-10] MEDS: MIRALAX 17 GM POWD.PACK PO SCH (08:46)
[2020-01-10] MEDS: SENNOSIDES 1 TABLET PO SCH ×3 (08:48→20:17)
[2020-01-10] MEDS: MAGNESIUM CHLORIDE 64 MG TABLET.SA PO SCH (08:49)
[2020-01-10] MEDS: VERAPAMIL 40 MG TABLET PO SCH ×4 (08:49→20:16)
[2020-01-10] MEDS: CLOTRIMAZOLE 1% CREAM 30 GM TUBE TOP SCH ×2 (08:50→16:04)
[2020-01-10] MEDS: FLECAINIDE ACETATE 100 MG TABLET PO SCH ×2 (08:50→20:07)
[2020-01-10] MEDS ORDERED: MAGNESIUM OXIDE 400 MG TABLET PO ONE (09:15)
[2020-01-10] MEDS: ACETAMINOPHEN 325 MG TABLET PO PRN (09:27)
[2020-01-10 16:24] VITALS: BP 90/53
--- NOTE | 2020-01-10 17:32 | NUR ---
patient voided once, however no bladder discomfort noted, patient denied any pain while light palpation of bladder, continue to monitor patient, ambulated patient, walked around,and encouraged patient to move around. Addendum: 01/10/20 at 1748 by ANTONIO HOPPER RN, RN patient voided again
[2020-01-10] MEDS: GABAPENTIN 300 MG CAPSULE PO SCH (20:07)
[2020-01-10] MEDS: TRAZODONE 50 MG TABLET PO SCH (20:07)
[2020-01-10 20:27] VITALS: BP 117/69
--- NOTE | 2020-01-10 21:16 | NUR ---
patient aaox3. no s/s of acute distress noted. v/s stable at this time. oxycodone requested for pain. covid rapid swab completed. patient refused verapamil tonight due to low blood pressure this morning despite education of stable blood pressure at this time. melatonin refused and returned to [facility]. Senokot refused and wasted despite education. patient would only like to take Senokot in the morning and docusate at night. safety precautions provided and call light within reach. will continue to monitor and assess patient. Addendum: 01/10/20 at 2245 by ELI DELGADO RN verapamil wasted.
[2020-01-11 05:11] VITALS: BP 103/61
[2020-01-11] MEDS: PANTOPRAZOLE SODIUM 40 MG TABLET.DR PO SCH (06:29)
--- NOTE | 2020-01-11 08:00 | NUR ---
Pt in bed awake AOx4, on RA with no SOB or distress noted at this time. Ambulated to bathroom with walker and standby assist and able to urinate. Fall precaution in place. Bed locked in lowest position with siderails 2x up. Call light and phone within reach
[2020-01-11 08:28] VITALS: BP 134/68
[2020-01-11] MEDS: VERAPAMIL 40 MG TABLET PO SCH ×3 (09:00→16:13)
[2020-01-11] MEDS: ESCITALOPRAM OXALATE 10 MG TABLET PO SCH (09:00)
[2020-01-11] MEDS: DOCUSATE SODIUM 100 MG CAPSULE PO SCH (09:00)
[2020-01-11] MEDS: FLECAINIDE ACETATE 100 MG TABLET PO SCH (09:16)
[2020-01-11] MEDS: CALCIUM CARB/VITAMIN D 500MG-200UNITS TABLET PO SCH (09:16)
[2020-01-11] MEDS: BETHANECHOL CHLORIDE 25 MG TABLET PO SCH ×2 (09:16→16:13)
[2020-01-11] MEDS: MIRALAX 17 GM POWD.PACK PO SCH (09:16)
[2020-01-11] MEDS: MAGNESIUM CHLORIDE 64 MG TABLET.SA PO SCH (09:16)
[2020-01-11] MEDS: CLOTRIMAZOLE 1% CREAM 30 GM TUBE TOP SCH ×2 (09:17→16:14)
[2020-01-11] MEDS: SENNOSIDES 1 TABLET PO SCH (09:17)
[2020-01-11] MEDS: ACETAMINOPHEN 325 MG TABLET PO PRN (10:00)
[2020-01-11 15:55] VITALS: BP 140/84
[2020-01-11 16:13] VITALS: BP 140/84
--- NOTE | 2020-01-11 16:40 | NUR ---
Pt discharged via wheelchair, AOx4, no SOB or distress at this time. DC instructions and forms signed and given to patient. Prescriptions given to patient and was faxed to [facility]. Belongings list signed and all accounted for. Wheelchair sent with patient rn case management stated that it will be brought back here in the hospital. ID band removed. Picked up by [facility] private transport.
== END 2020-01-11 16:40 | disposition home health service (06) | DRG 560 ==
PROVIDERS: ADMIT Physical Medicine & Rehabilitation Pain Medicine; ATTEND Physical Medicine & Rehabilitation Pain Medicine
DX: Z47.89 Encounter for other orthopedic aftercare (principal); E87.1 Hypo-osmolality and hyponatremia; M51.16 Intervertebral disc disorders with radiculopathy, lumbar region; D64.9 Anemia, unspecified; G89.29 Other chronic pain; I10 Essential (primary) hypertension; I48.91 Unspecified atrial fibrillation; M48.56XD Collapsed vertebra, not elsewhere classified, lumbar region, subsequent encounter for fracture with routine healing; M81.0 Age-related osteoporosis without current pathological fracture; Z82.49 Family history of ischemic heart disease and other diseases of the circulatory system; Z91.81 History of falling; R29.6 Repeated falls; R53.1 Weakness; E83.42 Hypomagnesemia; I95.1 Orthostatic hypotension; K64.9 Unspecified hemorrhoids; R33.9 Retention of urine, unspecified; Z88.0 Allergy status to penicillin; Z88.8 Allergy status to other drugs, medicaments and biological substances; Z91.018 Allergy to other foods; N31.2 Flaccid neuropathic bladder, not elsewhere classified
CPT/HCPCS: 36415; 82652; 83550; 83735; 83970; 84100; 85025; A4663; C1758; J1650; J2916; J3490; J7050

== ENCOUNTER 2020-11-07 15:38 | Inpatient (IN) | payer MEDICARE, OTHER ==
[~2020-11-07] VITALS: Ht 152.4 cm; Wt 52.2 kg
[~2020-11-07 15:38] MED LIST: ACET-2154 PO; BETH25TA10 PO; BISA10SU61 RC; CALC-555 PO; CALC300T4 PO; CYCL7.5T17 PO; DIAZ5TAB PO; DOCU-141 PO; ENOX40DI SQ; ESCI10TA PO; FLEC100T3 PO; GABA600T PO; MAG-55 PO; MAGN400O6 PO; MELA5TAB PO; METO-295 PO; ONDA4TAB5 PO; OXYC5CAP18 PO; PANT40TA2 PO; POLY17PO4 PO; SENN-18 PO; TRAM50TA PO; TRAZ-182 PO; VERA40TA5 PO
--- NOTE | 2020-11-07 16:20 | NUR ---
Down for CT Head at this time
[2020-11-07 16:26] LABS: HEMATOCRIT 36.4 % (31.2-41.9); MEAN CORPUSCULAR HEMOGLOBIN 29.1 uug (24.7-32.8); MEAN CORPUSCULAR VOLUME 88.6 fL (75.5-95.3); PLATELET COUNT (AUTO) 252 K/uL (179-408)
[2020-11-07 16:31] LABS: CARBON DIOXIDE 28 mmol/L (21-32); CHLORIDE 98 mmol/L (98-107); CREATININE 1.5 mg/dL (0.6-1.3); GLUCOSE 116 mg/dL (74-106); POTASSIUM 3.4 mmol/L (3.5-5.1); UREA NITROGEN, BLOOD 25 mg/dL (7-18)
[2020-11-07 16:37] LABS: ALANINE AMINOTRANSFERASE 18 U/L (14-59); ALKALINE PHOSPHATASE 79 U/L (50-136); ASPARTATE AMINOTRANSFERASE 15 U/L (15-37); BILIRUBIN,DIRECT 0.1 mg/dL (0.0-0.2); BILIRUBIN,TOTAL 0.4 mg/dL (0.2-1.0); TOTAL PROTEIN, SERUM 7.7 g/dL (6.4-8.2)
--- NOTE | 2020-11-07 18:00 | NUR ---
Called to give report. Was told they are not available to take report.
--- NOTE | 2020-11-07 18:30 | NUR ---
Called to give report again. Was told neither the receiving nurse nor the charge nurse is able to take report.
[2020-11-07 18:55] LABS: *BILIRUBIN,URIN NEGATIVE (NEGATIVE); *BLOOD, URINE NEGATIVE (NEGATIVE); *COLOR,URINE YELLOW (YELLOW); *KETONES,URINE TRACE (NEGATIVE); *UROBILINOGEN,URINE 0.2 E.U./dl (NORMAL); LEUKOCYTE ESTERASE ,URINE TRACE (NEGATIVE); NITRITE, URINE NEGATIVE (NEGATIVE); UGLUCOSE NEGATIVE (NEGATIVE)
[2020-11-07 19:11] LABS: *CLARITY,URINE SLIGHTLY HAZY (CLEAR); BACTERIA,URINE FEW /HPF (NONE SEEN); RBC,URINE 0-3 /HPF (0-3); SQUAMOUS EPITHELIAL CELL,UR FEW /HPF (NONE SEEN)
--- NOTE | 2020-11-07 20:27 | NUR ---
gae report to MAGED Gonzalez. Pt going to room 310.
[2020-11-07 21:10] VITALS: BP 167/44
--- NOTE | 2020-11-07 21:18 | NUR ---
Pt. admitted to tele , under care of Belongs List completed
[2020-11-08] VITALS (7 sets, daily range): BP systolic 145–169; BP diastolic 60–95
--- NOTE | 2020-11-08 | NUR ---
initial admission assessment completed under regular shift assessment in the start of care. Addendum: 11/08/20 at 0642 by REGISTRY [facility] IN[facility] RN2 RN Amended: Links added.
[2020-11-08] MEDS: IV NS 1000 ML 1,000 ML IV PRN ×2 (00:53→01:00)
[2020-11-08] MEDS ORDERED: ACETAMINOPHEN 325 MG TABLET PO PRN ×2 (05:45→08:00)
[2020-11-08 07:18] LABS: HEMATOCRIT 33.9 % (31.2-41.9); MEAN CORPUSCULAR HEMOGLOBIN 29.3 uug (24.7-32.8); MEAN CORPUSCULAR VOLUME 88.4 fL (75.5-95.3); PLATELET COUNT (AUTO) 235 K/uL (179-408)
--- NOTE | 2020-11-08 07:20 | NUR ---
NURSE REPORT Report obtained from night nurse Carlos and this nurse assumed care of patient. Received patient awake at beginning of shift. No c/o pain or discomfort. IV NS at 65 ml/hr infusing into L AC. On tele- SR 95. Call light within reach. Side rails elevated x 2
[2020-11-08 07:41] LABS: CREATININE 1.1 mg/dL (0.6-1.3); POTASSIUM 3.1 mmol/L (3.5-5.1)
[2020-11-08] MEDS ORDERED: PANTOPRAZOLE SODIUM 40 MG TABLET.DR PO SCH (07:57)
[2020-11-08] MEDS ORDERED: CALCIUM CARBONATE 500 MG TAB.CHEW PO PRN (08:00)
[2020-11-08] MEDS ORDERED: METOCLOPRAMIDE HCL 10 MG TABLET PO PRN (08:00)
[2020-11-08] MEDS ORDERED: MAGNESIUM HYDROXIDE 30 ML LIQUID UDC PO PRN (08:00)
[2020-11-08] MEDS ORDERED: BISACODYL 10 MG SUPP.RECT RC PRN (08:00)
[2020-11-08] MEDS ORDERED: MELATONIN 3 MG TABLET PO PRN (08:00)
[2020-11-08] MEDS ORDERED: CYCLOBENZAPRINE HCL 10 MG TABLET PO PRN (08:00)
[2020-11-08] MEDS ORDERED: TRAMADOL HCL 50 MG TABLET PO PRN (08:00)
[2020-11-08] MEDS ORDERED: OXYCODONE HCL 5 MG TABLET PO PRN (08:00)
[2020-11-08] MEDS ORDERED: MAG HYDROX/AL HYDROX/SIMETH 30 ML LIQUID UDC PO PRN (08:00)
[2020-11-08] MEDS ORDERED: ONDANSETRON HCL 4 MG TABLET PO PRN (08:00)
[2020-11-08] MEDS ORDERED: DIAZEPAM 5 MG TABLET PO PRN (08:00)
[2020-11-08] MEDS ORDERED: ENOXAPARIN SODIUM 40 MG/0.4 ML DISP.SYRIN SQ SCH (09:00)
[2020-11-08] MEDS ORDERED: FLECAINIDE ACETATE 100 MG TABLET PO SCH (09:00)
[2020-11-08] MEDS ORDERED: MIRALAX 17 GM POWD.PACK PO SCH (09:00)
[2020-11-08] MEDS ORDERED: SENNOSIDES 1 TABLET PO SCH (09:00)
[2020-11-08] MEDS ORDERED: CALCIUM CARB/VITAMIN D 500MG-200UNITS TABLET PO SCH (09:00)
[2020-11-08] MEDS ORDERED: DOCUSATE SODIUM 100 MG CAPSULE PO SCH (09:00)
[2020-11-08] MEDS: BETHANECHOL CHLORIDE 25 MG TABLET PO SCH ×3 (09:06→17:00)
[2020-11-08] MEDS: VERAPAMIL 40 MG TABLET PO SCH ×2 (09:42→14:15)
[2020-11-08] MEDS ORDERED: POTASSIUM CHLORIDE 20 MEQ TAB.PRT.SR PO ONE (10:00)
--- NOTE | 2020-11-08 10:00 | NUR ---
NURSE NOTES BP 169/96. On BP meds. Assisted to the bathroom with support of her hand. Case management stated there is a d/c order. Patient stated that she is going back to assisted living place.
[2020-11-08] MEDS ORDERED: ESCITALOPRAM OXALATE 10 MG TABLET PO SCH (11:00)
--- NOTE | 2020-11-08 16:00 | NUR ---
DISCHARGE NOTE D/C instructions given to patient with understandings. Signed form and also property management form. VSS. Afeb. SL and ID band removed. All meds given as order, except antidepressant, which she refused. She request to be dc'd back to the assited living place [facility].
--- NOTE | 2020-11-08 16:50 | NUR ---
DISCHARGE This nurse transferred patient upon discharge to downstairs via wheelchair and the van from [facility] Paperwork carried by patient to give to the place when she get there.
[2020-11-08] MEDS ORDERED: GABAPENTIN 300 MG CAPSULE PO SCH (21:00)
[2020-11-08] MEDS ORDERED: TRAZODONE 50 MG TABLET PO SCH (21:00)
== END 2020-11-08 16:53 | DRG 641 ==
LOC: ER 15:38 → TELE3 20:58
PROVIDERS: ADMIT Internal Medicine Nephrology; ATTEND Internal Medicine Nephrology
DX: E86.0 Dehydration (principal); N17.9 Acute kidney failure, unspecified; R55 Syncope and collapse; I12.9 Hypertensive chronic kidney disease with stage 1 through stage 4 chronic kidney disease, or unspecified chronic kidney disease; N18.30 Chronic kidney disease, stage 3 unspecified; I48.0 Paroxysmal atrial fibrillation; Z91.81 History of falling; Z20.822 Contact with and (suspected) exposure to COVID-19; Z82.49 Family history of ischemic heart disease and other diseases of the circulatory system; F41.9 Anxiety disorder, unspecified; E87.6 Hypokalemia; E03.9 Hypothyroidism, unspecified; G89.29 Other chronic pain; Z98.890 Other specified postprocedural states; M48.00 Spinal stenosis, site unspecified; X30.XXXA Exposure to excessive natural heat, initial encounter; Y92.89 Other specified places as the place of occurrence of the external cause
CPT/HCPCS: 36415; 70030-TC; 70450; 71045; 83605; 84443; 85025; 87040; 87086; 93005; 93307; A4663; G0378; J1650; J7030